=== PATIENT | female | born 1950 | race African-American/Black ===

== ENCOUNTER → 2017-02-11 | Outpatient (RCR) | payer OTHER | END | disposition home or self-care (01) | LOC: PTY 01-15 10:05 | DX: R26.89 Other abnormalities of gait and mobility (principal); Z96.653 Presence of artificial knee joint, bilateral; C95.91 Leukemia, unspecified, in remission ==

== ENCOUNTER 2017-03-12 09:45 | Outpatient (RCR) | payer OTHER | END 2017-03-13 | disposition home or self-care (01) | LOC: PTY 09:45 | DX: R26.89 Other abnormalities of gait and mobility (principal); Z96.652 Presence of left artificial knee joint; Z96.651 Presence of right artificial knee joint ==

== ENCOUNTER 2017-04-11 09:00 | Outpatient (RCR) | payer OTHER | END 2017-04-13 | disposition home or self-care (01) | LOC: PTY 09:00 | DX: R26.89 Other abnormalities of gait and mobility (principal); Z96.652 Presence of left artificial knee joint; Z96.651 Presence of right artificial knee joint ==

== ENCOUNTER 2017-04-21 10:00 | Outpatient (RCR) | payer OTHER | END 2017-05-14 | disposition home or self-care (01) | LOC: PTY 10:00 | DX: R26.89 Other abnormalities of gait and mobility (principal); Z96.653 Presence of artificial knee joint, bilateral ==

== ENCOUNTER → 2017-06-11 | Outpatient (RCR) | payer OTHER | END | disposition home or self-care (01) | LOC: PTY 10:34 | DX: R26.89 Other abnormalities of gait and mobility (principal); Z96.653 Presence of artificial knee joint, bilateral ==

== ENCOUNTER 2017-06-13 08:40 | Outpatient (RCR) | payer OTHER | END 2017-07-12 | disposition home or self-care (01) | LOC: PTY 08:40 | DX: R26.89 Other abnormalities of gait and mobility (principal); Z96.653 Presence of artificial knee joint, bilateral ==

== ENCOUNTER 2017-07-31 08:50 | Outpatient (RCR) | payer OTHER | END 2017-08-11 | disposition home or self-care (01) | LOC: PTY 08:50 | DX: Z96.653 Presence of artificial knee joint, bilateral (principal) ==